=== PATIENT | female | born 1995 | race American Indian/Alaskan Native ===

== ENCOUNTER 2017-09-07 12:15 | Emergency (ER) | payer BC ==
[2017-09-07] MEDS ORDERED: ATIVAN ONE (12:33)
[2017-09-07] MEDS ORDERED: KEPPRA 1,000 MG/NS 0.75% 100ML 1,000 MG/100 ML BAG IV ONE (12:56)
[2017-09-07 13:01] LABS: Hematocrit 33.7 % (30.3-42.9); Hemoglobin 10.6 gm/dl (10.1-14.3); Mean Corpuscular HGB Conc 32 % (30-34); Mean Corpuscular Hemoglobin 24 pg (28-32); Mean Corpuscular Volume 76 fl (79-97); Platelet Count 243 K/mm3 (140-440); Red Blood Count 4.46 M/mm3 (3.65-5.03)
[2017-09-07 13:10] LABS: BUN/Creatinine Ratio 16; Blood Urea Nitrogen 11 mg/dL (7-17); Calcium 8.4 mg/dL (8.4-10.2); Hemolysis Index 2
--- NOTE | 2017-09-07 13:15 | Emergency Department Report ---
HPI - General Chief Complaint: Seizure Time Seen by Provider: 09/07/17 12:47 - HPI HPI: Room 25 The patient is a 22-year-old female presenting with chief complaint of seizure. The patient was sitting on the sofa in usual state of health when she was witnessed to fall back and have a generalized tonic-clonic seizure lasting approximately 10-15 minutes per witness. Patient denies illicit drug use or recent insomnia. Patient states she has a slight headache and gives a score of 2-3/10 otherwise the patient states she feels fine. Patient denies ever having seizures in the past Location: Central nervous system Duration: 10-15 minutes Quality: Generalized tonic-clonic Severity: Moderate Modifying factors: [see above] Context: [see above] Mode of transportation: [not driving] ED Past Medical Hx - Past Medical History Previous Medical History?: No - Surgical History Past Surgical History?: No - Family History Family history: no significant - Social History Smoking Status: Former Smoker (none 1 year) Substance Use Type: None (denies illicit drug use), Alcohol (occasional) - Medications Home Medications: Home Medications Medication Instructions Recorded Confirmed Last Taken Type levETIRAcetam [Keppra TAB] 750 mg PO BID #90 tablet 09/07/17 Unknown Rx ED Review of Systems ROS: Stated complaint: SEIZURE Other details as noted in HPI Neurological: headache, other (seizure). denies: vertigo Physical Exam - Physical Exam Vital Signs: Vital Signs 09/07/17 12:32 Temperature 98.4 F Pulse Rate 91 H Respiratory 16 Rate Blood Pressure 119/83 [Left] O2 Sat by Pulse 97 Oximetry Physical Exam: GENERAL: The patient is well-developed well-nourished female lying on stretcher not appear to be in acute distress. [] HEENT: Normocephalic. Atraumatic. Extraocular motions are intact. Patient has moist mucous membranes. Small abrasion to the right lateral aspect of the tongue NECK: Supple. No meningitic signs are noted. Trachea midline CHEST/LUNGS: Clear to auscultation. There is no respiratory distress noted. HEART/CARDIOVASCULAR: Regular. There is no tachycardia. There is no gallop rub or murmur. ABDOMEN: Abdomen is soft, nontender. Patient has normal bowel sounds. There is no abdominal distention. SKIN: There is no rash. There is no edema. There is no diaphoresis. NEURO: The patient is awake, alert, and oriented. The patient is cooperative. The patient has no focal neurologic deficits. The patient has normal speech. Cranial nerves II through XII grossly intact, no drift MUSCULOSKELETAL: There is no evidence of acute injury. ED Course Vital Signs 09/07/17 12:32 Temperature 98.4 F Pulse Rate 91 H Respiratory 16 Rate Blood Pressure 119/83 [Left] O2 Sat by Pulse 97 Oximetry - Reevaluation(s) Reevaluation #1: 09/07/17 16:10 Patient unable to remove facial piercing for MRI. Patient states she will not let us cut the piercing to remove it. Importance of the MRI was explained to the patient and she verbalizes understanding. Patient acknowledges she will likely the hospital AGAINST MEDICAL ADVICE without MRI. Strong warnings given - Consultations Consultation #1: 09/07/17 14:44 Tele-Neurology paged 09/07/17 14:55 Case discussed with neurologist Dr. Helms- recommended starting patient on Keppra 750 mg twice a day and having patient follow up with neurology and neurosurgery. Recommends neurosurgical consultation Consultation #2: 09/07/17 15:13 Case discussed with neurosurgeon Dr. Funes- recommends MRI of the brain without and with contrast ED Medical Decision Making - Lab Data Result diagrams: 09/07/17 12:38 09/07/17 12:38 Laboratory Tests 09/07/17 09/07/17 09/07/17 12:38 12:38 12:46 WBC 6.8 RBC 4.46 Hgb 10.6 Hct 33.7 MCV 76 L MCH 24 L MCHC 32 RDW 17.0 H Plt Count 243 Sodium 141 Potassium 3.8 Chloride 102.5 Carbon Dioxide 23 Anion Gap 19 BUN 11 Creatinine 0.7 Estimated GFR > 60 BUN/Creatinine Ratio 16 Glucose 90 Calcium 8.4 Magnesium HCG, Qual Negative Urine Opiates Screen Urine Methadone Screen Ur Barbiturates Screen Ur Phencyclidine Scrn Ur Amphetamines Screen U Benzodiazepines Scrn Urine Cocaine Screen U Marijuana (THC) Screen Drugs of Abuse Note 09/07/17 09/07/17 12:46 13:31 WBC RBC Hgb Hct MCV MCH MCHC RDW Plt Count Sodium Potassium Chloride Carbon Dioxide Anion Gap BUN Creatinine Estimated GFR BUN/Creatinine Ratio Glucose Calcium Magnesium 1.90 HCG, Qual Urine Opiates Screen Presumptive negative Urine Methadone Screen Presumptive negative Ur Barbiturates Screen Presumptive negative Ur Phencyclidine Scrn Presumptive negative Ur Amphetamines Screen Presumptive negative U Benzodiazepines Scrn Presumptive negative Urine Cocaine Screen Presumptive negative U Marijuana (THC) Screen Presumptive positive Drugs of Abuse Note Disclamer - Radiology Data Radiology results: report reviewed (CT head), image reviewed (CT head) [facility] [address] [place] [address] Cat Scan Report Signed Patient: PRINCE GRECO MR#: [id number] : 1995 Acct:[id number] Age/Sex: 22 / F ADM Date: 09/07/17 Loc: ED Attending Dr: Ordering Physician: MILLER MARTINEZ MD Date of Service: 09/07/17 Procedure(s): CT head/brain wo con Accession Number(s): [id number] cc: MILLER MARTINEZ MD FINAL REPORT EXAM: CT HEAD/BRAIN WO CON HISTORY: seizure TECHNIQUE: CT of the Head without IV contrast. PRIORS: None currently available. FINDINGS: Prominence of the lateral, 3rd, and 4th ventricles may represent communicating hydrocephalus. No subependymal resorption is present. There is no evidence for acute ischemia. There is no hemorrhage. There is no midline shift. There is no mass. Age appropriate olivas-white matter attenuation is noted. There is no calvarial fracture. The temporal bones demonstrate aerated mastoid air cells. The middle ears appear unremarkable. Opacification without expansile or destructive features of the left sphenoid sinus identified. [id number] mucosal thickening in the right sphenoid sinus. Globes are intact. 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 Sinus disease. Transcribed By: TYM Dictated By: DAVID KNOTT MD Electronically Authenticated By: DAVID KNOTT MD Signed Date/Time: 09/07/17 134 DD/ 134 TD/TT: 09/07/17 134 - Medical Decision Making I discussed with patient and accompanying friend that the patient should not drive, operate heavy machinery or be around large bodies of water unattended that she runs a risk of having another a seizure and harming/killing herself or others. Patient and friend verbalized understanding - Differential Diagnosis seizure, epilepsy Critical care attestation.: If time is entered above; I have spent that time in minutes in the direct care of this critically ill patient, excluding procedure time. ED Disposition Clinical Impression: Seizure Disposition: DC-07 LEFT AGAINST MED ADVICE Is pt being admited?: No Does the pt Need Aspirin: No Condition: Undetermined Instructions: Epilepsy (ED), Non-epileptic Seizures (ED), New-Onset Seizure in Adults (ED), Women and Epilepsy (ED) Additional Instructions: You should not drive, operate heavy machinery or be around large bodies of water unattended until you are cleared by a neurologist. Return to the emergency department immediately should you develop worsening symptoms, fever, inability to tolerate food or liquid or any other concerns. Prescriptions: levETIRAcetam [Keppra TAB] 750 mg PO BID #90 tablet Referrals: KEKE TERRY MD [Primary Care Provider] - 3-5 Days ANGEL NAILS MD [Staff Physician] - [facility] (Dr. Nails is a neurologist. Please follow up with him for further evaluation) Time of Disposition: 16:15 (patient leaving AMA)
--- NOTE | 2017-09-07 13:47 | Cat Scan Report ---
FINAL REPORT EXAM: CT HEAD/BRAIN WO CON HISTORY: seizure TECHNIQUE: CT of the Head without IV contrast. PRIORS: None currently available. FINDINGS: Prominence of the lateral, 3rd, and 4th ventricles may represent communicating hydrocephalus. No subependymal resorption is present. There is no evidence for acute ischemia. There is no hemorrhage. There is no midline shift. There is no mass. Age appropriate olivas-white matter attenuation is noted. There is no calvarial fracture. The temporal bones demonstrate aerated mastoid air cells. The middle ears appear unremarkable. Opacification without expansile or destructive features of the left sphenoid sinus identified. [id number] mucosal thickening in the right sphenoid sinus. Globes are intact. 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 Sinus disease.
[2017-09-07 14:17] LABS: Amphetamine Screen,Urine PRESUMPTIVE NEGATIVE; Benzodiazepines Screen,Urine PRESUMPTIVE NEGATIVE; Cocaine Screen,Urine PRESUMPTIVE NEGATIVE; Methadone Screen,Urine PRESUMPTIVE NEGATIVE; Opiate Screen,Urine PRESUMPTIVE NEGATIVE
[2017-09-07 14:30] LABS: Cannabinoid Screen,Urine PRESUMPTIVE POSITIVE
[2017-09-07] MEDS ORDERED: FIORICET PO ONE (15:14)
[2017-09-07 15:49] VITALS: BP 113/71
== END 2017-09-07 17:24 | disposition left against medical advice (07) ==
LOC: ED 12:15
DX: R56.9 Unspecified convulsions (principal)
CPT/HCPCS: 36415; 70450; 80048; 80307; 83735; 84703; 85027; 96365; 99285; J1953; J2060